=== PATIENT | female | born 1985 | race Caucasian/White ===

== ENCOUNTER 2017-11-15 06:35 | Emergency (ER) | payer BC, OTHER ==
[~2017-11-15] VITALS: Ht 157.5 cm; Wt 68.9 kg
[2017-11-15] MEDS ORDERED: methylPREDNISolone 125 MG (Solu-MEDROL) VIAL IM ONE (07:00)
[2017-11-15] MEDS ORDERED: raNItidine 50 MG/2 ML INJ (ZANTAC) IM/IV ONE (07:00)
[2017-11-15] MEDS ORDERED: diphenhydrAMINE 50 MG/ML INJ (BENADRYL) IM ONE (07:00)
--- NOTE | 2017-11-15 07:28 | ED General ---
General Chief Complaint: Allergic Reaction Stated Complaint: ALLERGIC REACTION CHEST ARM Nursing Triage Note: ARRIVED VIA AMB TO ROOM 07. COMPLAINS OF AN ALLERGIC REACTION FROM A SPRAY HUERTAS. LAST DOSE OF BENADRYL WAS LAST NOC. Nursing Sepsis Screen: No Definite Risk Source of Information: Patient Exam Limitations: No Limitations History of Present Illness Date Seen by Provider: Nov 15, 2017 Time Seen by Provider: 06:44 Initial Comments This 32-year-old young lady presents to the emergency room with intensifying rash and edema after getting a spray huertas about one week ago. She has taken Benadryl without sufficient relief. The rash is also painful. Her last dose of Benadryl was last night. She has had severe allergic reactions in the past, particularly to sulfa. She has also had reactions to topical bronzers. She denies any throat, tongue or lip swelling or shortness of breath. She was initially noted to be tachycardic which she states is typical for her in a healthcare setting. Heart rate was noted to return to normal when medical staff leave the room. She has anxiety related to healthcare encounters. Patient reports the rash started very soon after the spray can. She can identify no other recent exposures. She denies sore throat or fever. Allergies and Home Medications Allergies Coded Allergies: Sulfa (Sulfonamide Antibiotics) (Verified Allergy, Severe, HIVES, EDEMA, ) Uncoded Allergies: Topical [place] Huertas and Bronzers (Allergy, Intermediate, RASH, 11/15/17) Skin rash, swelling and pain Home Medications Prednisone 10 Mg Tab.ds.pk, 10 MG PO UD Prescribed by: CARRINGTON VEE on 11/15/17 0739 Ranitidine HCl 150 Mg Tablet, 150 MG PO BID 3 daily for 3 days, then 2 daily for 3 days, then 1 daily for 3 days Prescribed by: CARRINGTON VEE on 11/15/17 0739 Patient Home Medication List Home Medication List Reviewed: Yes Review of Systems Constitutional: no symptoms reported EENTM: other (swelling around the neck and eyes) Respiratory: no symptoms reported Cardiovascular: no symptoms reported Gastrointestinal: no symptoms reported Genitourinary: no symptoms reported : No LMP: Nov 01, 2017 Musculoskeletal: no symptoms reported Skin: see HPI Psychiatric/Neurological: No Symptoms Reported Hematologic/Lymphatic: No Symptoms Reported Immunological/Allergic: see HPI Past [id number] Hx Patient Social History Alcohol Use: Occasionally Uses Recreational Drug Use: No Smoking Status: Current Everyday Smoker Recent Foreign Travel: No Contact w/Someone Who Travel: No Recent Infectious Disease Expo: No Recent Hopitalizations: No Seasonal Allergies Seasonal Allergies: Yes Past Medical History Surgeries: No Respiratory: No Cardiac: Yes Hypertension Neurological: No : No Last Menstrual Period: Nov 01, 2017 Genitourinary: No Gastrointestinal: No Musculoskeletal: No Endocrine: No HEENT: No Cancer: No Psychosocial: Yes Anxiety Integumentary: Yes Recent Skin Changes Physical Exam Vital Signs Vital Signs - First Documented 11/15/17 06:40 Temp 98.5 Pulse 128 Resp 18 B/P (MAP) 157/123 (134) Pulse Ox 96 O2 Delivery Room Air Capillary Refill : Less Than 3 Seconds General Appearance: No Apparent Distress, WD/WN HEENT: PERRL/EOMI, Pharynx Normal, Other (swelling around the eyes and neck. 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 as Tested Skin: Warm/Dry, Rash (maculopapular rash concentrated around the trunk and less intense on the periphery) Progress/Results/Core Measures Suspected Sepsis Recent Fever Within 48 Hours: No Infection Criteria Present: None New/Unexplained Altered Menta: No Sepsis Screen: No Definite Risk SIRS Temperature:98.5 Pulse: 128 Respiratory Rate: 18 Blood Pressure 157 /123 Mean: 134 Results/Orders My Orders Orders - CARRINGTON HADLEY MD Ranitidine Injection (Zantac Inj (Non-Fo (11/15/17 07:00) Diphenhydramine Injection (Benadryl Inje (11/15/17 07:00) Methylprednisolone Sod Succ (Solu-Medrol (11/15/17 07:00) Medications Given in ED Current Medications Medications Dose Ordered Sig/Nnamdi Route Start Time Stop Time Status Last Admin Dose Admin Diphenhydramine HCl 25 mg ONCE ONCE IM 11/15/17 07:00 11/15/17 07:01 DC 11/15/17 07:06 25 MG Methylprednisolone Sodium Succinate 125 mg ONCE ONCE IM 11/15/17 07:00 11/15/17 07:01 DC 11/15/17 07:07 125 MG Ranitidine HCl 50 mg ONCE ONCE IM/IV 11/15/17 07:00 11/15/17 07:01 DC 11/15/17 07:06 50 MG Vital Signs/I&O 11/15/17 06:40 Temp 98.5 Pulse 128 Resp 18 B/P (MAP) 157/123 (134) Pulse Ox 96 O2 Delivery Room Air Capillary Refill : Less Than 3 Seconds Blood Pressure Mean: 134 Progress Note #1: Time: 07:33 Progress Note IV could not be established after 2 attempts. I am medications were given including Solu-Medrol 125 mg, Benadryl 25 mg, and ranitidine 50 mg. Progress Note #2: Time: 08:19 Progress Note Patient had some mild improvement in her symptoms during her ER stay. Her rash and symptoms seemed to behave more like a contact dermatitis then urticaria. Her rash will probably take a couple of weeks to resolve. She needs a primary care provider to monitor her blood pressure and take care of her healthcare continuity. She was advised to establish care as soon as possible. Departure Impression Primary Impression: Contact dermatitis Qualified Codes: L23.5 - Allergic contact dermatitis due to other chemical products Disposition: 01 HOME, SELF-CARE Condition: Improved Departure-Patient Inst. Decision time for Depature: 07:35 Referrals: JOSHUA MAC (PCP) Primary Care Physician ANTONIA LOWRY MD Patient Instructions: Contact Dermatitis (DC) Add. Discharge Instructions: You're allergic reaction is likely a contact dermatitis and will behave similar to poison chaz. This means it may take another week or two to resolve. For itching and antihistamine treatment, try a nondrowsy allergy medication during the day such as Claritin (loratadine), Zyrtec (cetirizine), or similar medication. Add Benadryl (diphenhydramine) up to 50 mg at night or every 6 hours as needed for additional relief. Add ranitidine for 10 days for additional antihistamine relief. This is an antacid medication but also as a histamine jaspreet that works differently than the above medications. Complete the prednisone taper as prescribed. Return to care promptly or call 911 if you have worsening symptoms including swelling of the lips, tongue, or throat or difficulty breathing. All discharge instructions reviewed with patient and/or family. Voiced understanding. Scripts Prednisone (Prednisone) 10 Mg Tab.ds.pk 10 MG PO UD, #18 EA Prov: CARRINGTON HADLEY MD 11/15/17 Ranitidine HCl (Ranitidine HCl) 150 Mg Tablet 150 MG PO BID, #10 TAB 3 daily for 3 days, then 2 daily for 3 days, then 1 daily for 3 days Prov: CARRINGTON HADLEY MD 11/15/17 CARRINGTON HADLEY MD Nov 15, 2017 07:28
[2017-11-15] MEDS ORDERED: RANI150T11 PO (07:39)
[2017-11-15] MEDS ORDERED: PRED10TA22 PO (07:39)
[2017-11-15 08:28] VITALS: BP 145/95
== END 2017-11-15 08:28 | disposition home or self-care (01) ==
LOC: EDUNIT# 06:35 → ER 06:39
DX: L23.5 Allergic contact dermatitis due to other chemical products (principal); I10 Essential (primary) hypertension; F41.9 Anxiety disorder, unspecified; F17.200 Nicotine dependence, unspecified, uncomplicated; Z88.2 Allergy status to sulfonamides; Z88.8 Allergy status to other drugs, medicaments and biological substances; Z79.52 Long term (current) use of systemic steroids
CPT/HCPCS: 96372; 99284